=== PATIENT | female | born 1980 | race Native Hawaiian/Other Pacific Islander ===

== ENCOUNTER 2018-06-02 23:51 | Emergency (ER) | payer OTHER ==
[2018-06-03 00:12] LABS: BILIRUBIN,URINE NEGATIVE (NEGATIVE); GLUCOSE, URINE (UA) NEGATIVE (NEGATIVE); KETONES,URINE (UA) NEGATIVE (NEGATIVE); LEUKOCYTE ESTERASE, URINE SMALL (NEGATIVE); NITRITE,URINE NEGATIVE (NEGATIVE); OCCULT BLOOD,URINE NEGATIVE (NEGATIVE); PH,URINE 6.5 PH (5.0-7.5); PROTEIN,URINE NEGATIVE (NEGATIVE); UROBILINOGEN,URINE 0.2 (NORMAL) E.U./dL (NORMAL)
[2018-06-03 00:18] LABS: BASOPHILS # (AUTO) 0.1 10^3/uL (0.0-0.1); BASOPHILS % (AUTO) 0.8 %; EOSINOPHILS # (AUTO) 0.3 10^3/uL (0.0-0.7); EOSINOPHILS % (AUTO) 3.7 %; HGB - HEMOGLOBIN 15.1 g/dL (12.0-16.0); LYMPHOCYTES # (AUTO) 2.5 10^3/uL (1.5-3.5); LYMPHOCYTES % (AUTO) 27.8 %; MEAN CORPUSCULAR HEMOGLOBIN 30.5 pg (27.0-31.0); MEAN CORPUSCULAR HGB CONC 34.6 g/dL (32.0-36.0); MEAN CORPUSCULAR VOLUME 88.3 fL (81.0-99.0); MEAN PLATELET VOLUME 8.3 fL (7.9-10.8); MONOCYTES # (AUTO) 0.6 10^3/uL (0.0-1.0); MONOCYTES % (AUTO) 6.7 %; NEUTROPHILS # (AUTO) 5.5 10^3/uL (1.5-6.6); PLT - PLATELET COUNT 214 10^3/uL (130-450); RED BLOOD COUNT 4.95 10^6/uL (4.20-5.40); RED CELL DISTRIBUTION WIDTH 12.9 % (12.0-15.0)
[2018-06-03 00:27] LABS: BACTERIA,URINE Rare /HPF (None Seen); CLARITY,URINE CLEAR (CLEAR); HCG UR QUAL NEGATIVE; RBC,URINE 0-5 /HPF (0-5); SQUAMOUS EPITHELIAL CELL,UR MOD Squamous (<= Few)
--- NOTE | 2018-06-03 00:38 | ED Physician Documentation ---
PD HPI ABD PAIN - Stated complaint Stated Complaint: ABD PX/BACK PX - Chief complaint Chief Complaint: Abd Pain - History obtained from History obtained from: Patient - History of Present Illness Timing - onset: How many days ago (5 days ago) Timing - details: Abrupt onset Pain level now: 8 Quality: Pain Location: RUQ Radiation: Lower back Improved by: Other (no ameliorating factors) Worsened by: Other (no exacerbating factors) Associated symptoms: Nausea. No: Fever, Vomiting, Diarrhea, Constipation Recently seen: Clinic (evaluated at [facility] 5 days ago (see below)) - Additional information Additional information: Sudden onset RUQ abdominal pain 5 days ago, evaluated at [facility] at that time; patient says she had blood tests, xrays, and UA. She was started on Cipro for possible UTI, although xrays were s/o gallstones. Her pain resolved and she was pain-free until earlier tonight when her pain returned and was more severe Review of Systems Constitutional: denies: Fever, Chills, Sweats Cardiac: reports: Reviewed and negative Respiratory: reports: Reviewed and negative GI: reports: Abdominal Pain, Nausea. denies: Vomiting, Constipation, Diarrhea : denies: Dysuria, Frequency, Now EGA PD PAST MEDICAL HISTORY - Past Medical History Past Medical History: No Cardiovascular: Hypertension - Past Surgical History Past Surgical History: No - Present Medications Home Medications: Ambulatory Orders Medication Instructions Recorded Confirmed Ciprofloxacin [Cipro] 500 mg PO BID 06/02/18 06/02/18 Hydrocodone/Acetaminophen 1 - 2 each PO Q6H PRN #14 tablet 06/03/18 [Hydrocodon-Acetaminophen 5-325] Ondansetron Odt [Zofran] 4 mg TL Q6H PRN #10 tablet 06/03/18 - Allergies Allergies/Adverse Reactions: Allergies Allergy/AdvReac Type Severity Reaction Status Date / Time amoxicillin Allergy Intermediate Rash Verified 06/02/18 23:58 - Social History Does the pt smoke?: Yes Smoking Status: Current every day smoker Does the pt drink ETOH?: Yes Does the pt have substance abuse?: No - Immunizations Immunizations are current?: No - POLST Patient has POLST: No PD ED PE NORMAL - Vitals Vital signs reviewed: Yes - General General: Alert and oriented X 3, Well developed/nourished, Other (appears to be in mild/moderate painful distress) - Cardiac Cardiac: RRR, No murmur - Respiratory Respiratory: No respiratory distress, Clear bilaterally - Abdomen Abdomen: Soft, Non distended, Other (mild RUQ/epigastric tenderness to palpation without rebound or guarding) - Back Back: No CVA TTP - Derm Derm: Normal color, Warm and dry Results - Vitals Vitals: Vital Signs - 24 hr 06/02/18 06/03/18 06/03/18 23:54 02:46 05:11 Temperature 36.4 C L Heart Rate 84 62 68 Respiratory 18 16 16 Rate Blood Pressure 146/102 H 137/98 H 136/109 H O2 Saturation 100 99 100 Oxygen O2 Source Room air - Labs Labs: Laboratory Tests 06/03/18 06/03/18 06/03/18 00:01 00:08 00:08 WBC 9.0 RBC 4.95 Hgb 15.1 Hct 43.7 MCV 88.3 MCH 30.5 MCHC 34.6 RDW 12.9 Plt Count 214 MPV 8.3 Neut # (Auto) 5.5 Lymph # (Auto) 2.5 [place] # (Auto) 0.6 Eos # (Auto) 0.3 Baso # (Auto) 0.1 Absolute Nucleated RBC 0.00 Nucleated RBC % 0.0 Sodium 137 Potassium 3.6 Chloride 105 Carbon Dioxide 24 Anion Gap 8.0 BUN 17 Creatinine 0.8 Estimated GFR (MDRD) 81 L Glucose 126 H Calcium 8.7 Total Bilirubin 0.8 AST 19 ALT 21 Alkaline Phosphatase 42 Total Protein 7.3 Albumin 4.0 Globulin 3.3 Albumin/Globulin Ratio 1.2 Lipase 33 Urine Color YELLOW Urine Clarity CLEAR Urine pH 6.5 Ur Specific [place] 1.020 Urine Protein NEGATIVE Urine Glucose (UA) NEGATIVE Urine Ketones NEGATIVE Urine Occult Blood NEGATIVE Urine Nitrite NEGATIVE Urine Bilirubin NEGATIVE Urine Urobilinogen 0.2 (NORMAL) Ur Leukocyte Esterase SMALL H Urine RBC 0-5 Urine WBC 4-5 Ur Squamous Epith Cells MOD Squamous H Urine Bacteria Rare Ur Microscopic Review INDICATED Urine Culture Comments NOT INDICATED Urine HCG, Qual NEGATIVE - Rads (name of study) RUQ US Radiology: Prelim report reviewed, See rad report PD MEDICAL DECISION MAKING - ED course Complexity details: reviewed results, re-evaluated patient, considered differential, d/w patient ED course: On reevaluation, patient is resting comfortably. She reports resolution of her symptoms subsequent to IV fluids, toradol, and dilaudid. Advised of test results and need to return if worse, follow-up with general surgery Departure - Departure Disposition: 01 Home, Self Care Clinical Impression: Biliary colic Condition: Good Instructions: ED Gallstone W Biliary Colic Follow-Up: [facility] [Provider Group] Rhett Fountain MD [Provider Admit Priv/Credential] - Prescriptions: Hydrocodone/Acetaminophen [Hydrocodon-Acetaminophen 5-325] 1 - 2 each PO Q6H PRN #14 tablet PRN Reason: pain Ondansetron Odt [Zofran] 4 mg TL Q6H PRN #10 tablet PRN Reason: Nausea / Vomiting Discharge Date/Time: 06/03/18 05:12
[2018-06-03 00:50] LABS: ALBUMIN/GLOBULIN RATIO 1.2 (1.0-2.2); BILIRUBIN,TOTAL 0.8 mg/dL (0.2-1.0); CALCIUM 8.7 mg/dL (8.5-10.3); CREATININE 0.8 mg/dL (0.4-1.0); TOTAL PROTEIN 7.3 g/dL (6.7-8.2)
[2018-06-03] MEDS ORDERED: ONDANSETRON 4 MG/2 ML VIAL IVP STA (00:57)
[2018-06-03] MEDS ORDERED: KETOROLAC 60 MG/2 ML VIAL IVP STA (00:57)
[2018-06-03] MEDS ORDERED: HYDROmorphone 1 MG/ML CARPUJECT IVP STA (00:57)
--- NOTE | 2018-06-03 02:23 | Ultrasound Report ---
Reason: RUQ pain Procedure Date: 06/03/2018 Accession Number: [id number] / [id number] Procedure: US - Abdomen Limited CPT Code: FULL RESULT: EXAM: ABDOMEN ULTRASOUND LIMITED, RUQ EXAM DATE: 06/03/2018 02:02 AM. CLINICAL HISTORY: Right upper quadrant pain. COMPARISON: None. TECHNIQUE: Real-time scanning was performed with static images obtained. FINDINGS: Liver: Moderate to severe increased echogenicity. No suspicious focal lesion. Liver measures cm in length. Portal Vein: Patent with hepatopetal flow. Gallbladder: Multiple gallstones are noted within the gallbladder neck. No pathologic wall thickening or pericholecystic fluid. Sonographic Meza sign difficult to assess due to premedication. Biliary System: CBD measures 4.8 mm. No intrahepatic or extrahepatic ductal dilatation. Pancreas: Normal appearing head and body. Other portions are obscured by overlying structures. Right Kidney: Visualized portions of the right kidney are without significant abnormality. Right kidney measures 10.5 cm in length. Other: None. IMPRESSION: 1. Multiple gallstones without evidence of cholecystitis. No pathologic biliary dilation demonstrated. 2. Moderate to severe hepatic steatosis. RADIA
[2018-06-03] MEDS ORDERED: HYDROcod/ACET 5/325 Prepack 4 PO STA (05:03)
[2018-06-03 05:12] VITALS: BP 136/109
== END 2018-06-03 05:12 | disposition home or self-care (01) ==
LOC: ED 23:51
DX: I10 Essential (primary) hypertension (principal); F17.200 Nicotine dependence, unspecified, uncomplicated; K80.70 Calculus of gallbladder and bile duct without cholecystitis without obstruction
CPT/HCPCS: 36415; 76705; 80053; 81001; 81003; 81025; 83690; 85025; 87086; 96374; 99283; 99284

== ENCOUNTER 2018-07-07 01:28 | Emergency (ER) | payer OTHER ==
[2018-07-07] MEDS ORDERED: KETOROLAC 15 MG/ML VIAL IVP STA (01:46)
[2018-07-07] MEDS ORDERED: SODIUM CHLORIDE 0.9% 1,000 ML IV STA (01:46)
[2018-07-07] MEDS ORDERED: MORPHINE 10 MG/ML VIAL IVP STA (01:46)
--- NOTE | 2018-07-07 01:53 | ED Physician Documentation ---
PD HPI ABD PAIN - Stated complaint Stated Complaint: ABD PX/BK PX - Chief complaint Chief Complaint: Abd Pain - History obtained from History obtained from: Patient - History of Present Illness Timing - onset: How many hours ago (5), Last night Timing - duration: Hours (5) Timing - details: Abrupt onset Pain level max: 9 Pain level now: 9 Quality: Aching, Pain Location: RUQ, Epigastric Radiation: Other (non-radiating) Improved by: Other (nothing) Worsened by: Moving, Palpation Associated symptoms: Nausea. No: Fever, Vomiting, Hematemesis, Diarrhea, Constipation, Melena, Hematochezia, Dysuria Similar symptoms before: Diagnosis (biliary colic) Recently seen: Not recently seen - Additional information Additional information: awaiting surgery referral for biliary colic. Review of Systems Ten Systems: 10 systems reviewed and negative Constitutional: denies: Fever, Chills Throat: denies: Sore throat Cardiac: denies: Chest pain / pressure Respiratory: denies: Dyspnea, Cough, Wheezing GI: denies: Vomiting, Diarrhea, Hematemesis, Bloody / black stool : denies: Dysuria, Frequency, Hesitancy, Now EGA Skin: denies: Rash Musculoskeletal: denies: Neck pain, Back pain Neurologic: denies: Headache PD PAST MEDICAL HISTORY - Past Medical History Cardiovascular: Hypertension - Past Surgical History Past Surgical History: No - Present Medications Home Medications: Ambulatory Orders Medication Instructions Recorded Confirmed Hydrocodone/Acetaminophen 1 - 2 each PO Q6H PRN #14 tablet 06/03/18 07/07/18 [Hydrocodon-Acetaminophen 5-325] Ondansetron Odt [Zofran] 4 mg TL Q6H PRN #10 tablet 06/03/18 07/07/18 - Allergies Allergies/Adverse Reactions: Allergies Allergy/AdvReac Type Severity Reaction Status Date / Time amoxicillin Allergy Intermediate Rash Verified 07/07/18 01:35 - Social History Does the pt smoke?: Yes Smoking Status: Current every day smoker Does the pt drink ETOH?: Yes Does the pt have substance abuse?: No - Immunizations Immunizations are current?: No - POLST Patient has POLST: No PD ED PE NORMAL - Vitals Vital signs reviewed: Yes - General General: Alert and oriented X 3, No acute distress, Well developed/nourished - HEENT HEENT: PERRL, Moist mucous membranes - Neck Neck: Supple, no meningeal sign - Cardiac Cardiac: RRR, Strong equal pulses - Respiratory Respiratory: No respiratory distress, Clear bilaterally - Abdomen Abdomen: Soft, Non distended, Other (Tender to palpation right upper quadrant. Positive Meza sign) - Back Back: No spinal TTP - Derm Derm: Warm and dry - Extremities Extremities: No edema - Neuro Neuro: Alert and oriented X 3 - Psych Psych: Normal mood, Normal affect Results - Vitals Vitals: Vital Signs - 24 hr 07/07/18 07/07/18 07/07/18 01:31 02:41 03:32 Temperature 36.6 C 36.5 C Heart Rate 71 88 71 Respiratory 17 15 16 Rate Blood Pressure 142/100 H 131/91 H 128/87 H O2 Saturation 100 99 100 Oxygen O2 Source Room air - Labs Labs: Laboratory Tests 07/07/18 07/07/18 07/07/18 01:46 01:46 01:50 WBC 6.6 RBC 4.52 Hgb 13.8 Hct 40.6 MCV 89.7 MCH 30.5 MCHC 33.9 RDW 12.4 Plt Count 180 MPV 8.4 Neut # (Auto) 3.5 Lymph # (Auto) 2.3 [place] # (Auto) 0.5 Eos # (Auto) 0.3 Baso # (Auto) 0.1 Absolute Nucleated RBC 0.01 Nucleated RBC % 0.1 Sodium 136 Potassium 3.8 Chloride 103 Carbon Dioxide 27 Anion Gap 6.0 BUN 18 Creatinine 0.9 Estimated GFR (MDRD) 70 L Glucose 127 H Calcium 9.0 Total Bilirubin 0.6 AST 17 ALT 20 Alkaline Phosphatase 41 L Total Protein 6.7 Albumin 3.7 Globulin 3.0 Albumin/Globulin Ratio 1.2 Lipase 34 Urine Color YELLOW Urine Clarity HAZY Urine pH 6.0 Ur Specific [place] 1.025 Urine Protein NEGATIVE Urine Glucose (UA) NEGATIVE Urine Ketones NEGATIVE Urine Occult Blood SMALL H Urine Nitrite NEGATIVE Urine Bilirubin NEGATIVE Urine Urobilinogen 0.2 (NORMAL) Ur Leukocyte Esterase SMALL H Urine RBC 0-5 Urine WBC >25 H Ur Squamous Epith Cells MANY Squamous H Urine Bacteria Moderate H Ur Microscopic Review INDICATED Urine Culture Comments NOT INDICATED Urine HCG, Qual NEGATIVE - Rads (name of study) Right upper quadrant ultrasound Radiology: Prelim report reviewed, EMP read contemporaneously, See rad report (Cholelithiasis and mild gallbladder wall thickening, early cholecystitis is possible in the proper clinical setting. 2. Mildly fatty liver. ) PD MEDICAL DECISION MAKING - ED course Complexity details: reviewed old records, reviewed results, re-evaluated patient, considered differential, d/w patient ED course: 38-year-old female with biliary colic. She did have a stone lodged in the gallbladder neck, but upon arrival back to the emergency department from ultrasound. Her pain suddenly resolved. Likely that the stone was dislodged. I offered to consult surgery to see if they would remove her gallbladder in the morning, she declines this and would rather follow-up as an outpatient. She will contact the office directly. She will return for worsening pain, fevers, vomiting or other new or worsening symptoms. Patient is well-appearing, nontoxic. Abdomen is soft, nontender nondistended on serial exam. Patient counseled regarding signs and symptoms for which I believe and urgent re- evaluation would be necessary. Patient with good understanding of and agreement to plan and is comfortable going home at this time This document was made in part using voice recognition software. While efforts are made to proofread this document, sound alike and grammatical errors may occur. Departure - Departure Disposition: 01 Home, Self Care Clinical Impression: Biliary colic Condition: Good Instructions: ED Gallstone W Biliary Colic Follow-Up: Rhett Fountain MD [Provider Admit Priv/Credential] - Within 1 week Comments: Your pain has resolved tonight. Return if your pain worsens, you develop vomiting or fevers. It is important to follow-up with surgery to have your gallbladder removed. You should follow-up very low-fat diet as this may help to prevent future attacks. Discharge Date/Time: 07/07/18 03:33
[2018-07-07 01:55] LABS: BASOPHILS # (AUTO) 0.1 10^3/uL (0.0-0.1); BASOPHILS % (AUTO) 0.8 %; EOSINOPHILS # (AUTO) 0.3 10^3/uL (0.0-0.7); EOSINOPHILS % (AUTO) 4.4 %; HGB - HEMOGLOBIN 13.8 g/dL (12.0-16.0); LYMPHOCYTES # (AUTO) 2.3 10^3/uL (1.5-3.5); LYMPHOCYTES % (AUTO) 34.2 %; MEAN CORPUSCULAR HEMOGLOBIN 30.5 pg (27.0-31.0); MEAN CORPUSCULAR HGB CONC 33.9 g/dL (32.0-36.0); MEAN CORPUSCULAR VOLUME 89.7 fL (81.0-99.0); MEAN PLATELET VOLUME 8.4 fL (7.9-10.8); MONOCYTES # (AUTO) 0.5 10^3/uL (0.0-1.0); MONOCYTES % (AUTO) 7.2 %; NEUTROPHILS # (AUTO) 3.5 10^3/uL (1.5-6.6); NEUTROPHILS % (AUTO) 53.4 %; PLT - PLATELET COUNT 180 10^3/uL (130-450); RED BLOOD COUNT 4.52 10^6/uL (4.20-5.40); RED CELL DISTRIBUTION WIDTH 12.4 % (12.0-15.0); WHITE BLOOD COUNT 6.6 x10^3/uL (4.8-10.8)
[2018-07-07 02:04] LABS: BILIRUBIN,URINE NEGATIVE (NEGATIVE); GLUCOSE, URINE (UA) NEGATIVE (NEGATIVE); KETONES,URINE (UA) NEGATIVE (NEGATIVE); LEUKOCYTE ESTERASE, URINE SMALL (NEGATIVE); NITRITE,URINE NEGATIVE (NEGATIVE); OCCULT BLOOD,URINE SMALL (NEGATIVE); PROTEIN,URINE NEGATIVE (NEGATIVE); UROBILINOGEN,URINE 0.2 (NORMAL) E.U./dL (NORMAL)
[2018-07-07 02:16] LABS: BACTERIA,URINE Moderate /HPF (None Seen); CLARITY,URINE HAZY (CLEAR); HCG UR QUAL NEGATIVE; RBC,URINE 0-5 /HPF (0-5); SQUAMOUS EPITHELIAL CELL,UR MANY Squamous (<= Few)
[2018-07-07 02:23] LABS: ALBUMIN 3.7 g/dL (3.2-5.5); ALBUMIN/GLOBULIN RATIO 1.2 (1.0-2.2); BILIRUBIN,TOTAL 0.6 mg/dL (0.2-1.0); CREATININE 0.9 mg/dL (0.4-1.0); TOTAL PROTEIN 6.7 g/dL (6.7-8.2)
--- NOTE | 2018-07-07 03:07 | Ultrasound Report ---
Reason: RUQ pain Procedure Date: 07/07/2018 Accession Number: [id number] / [id number] Procedure: US - Abdomen Limited CPT Code: FULL RESULT: EXAM: ABDOMEN ULTRASOUND LIMITED, RUQ EXAM DATE: 07/07/2018 02:00 AM. CLINICAL HISTORY: Right upper quadrant pain. COMPARISON: ABDOMEN LIMITED 06/03/2018 1:17 AM. TECHNIQUE: Real-time scanning was performed with static images obtained. FINDINGS: Liver: Echotexture increased without suspicious abnormality seen. Main portal vein flow: Hepatopetal. Gallbladder: Multiple gallstones and sludge, including a large stone lodged in the gallbladder neck. Wall thickening at 3.3 mm. Telephone Service Representative reports patient medicated. No pericholecystic edema seen. Biliary System: CBD measures 4 mm. No intrahepatic or extrahepatic ductal dilatation. Other: Visualized portions of the pancreas and right kidney are unremarkable. IMPRESSION: 1. Cholelithiasis and mild gallbladder wall thickening, early cholecystitis is possible in the proper clinical setting. 2. Mildly fatty liver. RADIA
[2018-07-07 03:33] VITALS: BP 128/87
== END 2018-07-07 03:33 | disposition home or self-care (01) ==
LOC: ED 01:28
DX: K80.50 Calculus of bile duct without cholangitis or cholecystitis without obstruction (principal); F17.200 Nicotine dependence, unspecified, uncomplicated
CPT/HCPCS: 36415; 76705; 80053; 81001; 81003; 81025; 83690; 85025; 87086; 96361; 96374; 99283; 99284

== ENCOUNTER 2018-08-01 03:02 | Day surgery (SDC) | payer OTHER ==
[2018-08-01] MEDS ORDERED: PROMETHAZINE INJ 25 MG in SODIUM CHLORIDE 0.9% 50 ML IV STA (03:32)
[2018-08-01] MEDS ORDERED: SODIUM CHLORIDE 0.9% 1,000 ML IV ONE (03:32)
[2018-08-01] MEDS ORDERED: fentaNYL 100 MCG/2 ML VIAL IVP STA ×2 (03:32→05:17)
[2018-08-01 03:38] LABS: BASOPHILS # (AUTO) 0.1 10^3/uL (0.0-0.1); EOSINOPHILS # (AUTO) 0.3 10^3/uL (0.0-0.7); HGB - HEMOGLOBIN 14.6 g/dL (12.0-16.0); LYMPHOCYTES # (AUTO) 2.3 10^3/uL (1.5-3.5); LYMPHOCYTES % (AUTO) 34.1 %; MEAN CORPUSCULAR HEMOGLOBIN 30.5 pg (27.0-31.0); MEAN CORPUSCULAR HGB CONC 34.3 g/dL (32.0-36.0); MEAN CORPUSCULAR VOLUME 88.9 fL (81.0-99.0); MEAN PLATELET VOLUME 8.7 fL (7.9-10.8); MONOCYTES # (AUTO) 0.7 10^3/uL (0.0-1.0); MONOCYTES % (AUTO) 9.9 %; NEUTROPHILS # (AUTO) 3.3 10^3/uL (1.5-6.6); PLT - PLATELET COUNT 206 10^3/uL (130-450); RED BLOOD COUNT 4.79 10^6/uL (4.20-5.40); RED CELL DISTRIBUTION WIDTH 12.5 % (12.0-15.0); WHITE BLOOD COUNT 6.6 x10^3/uL (4.8-10.8)
[2018-08-01 04:01] LABS: ALBUMIN 4.2 g/dL (3.2-5.5); ALBUMIN/GLOBULIN RATIO 1.3 (1.0-2.2); ALKALINE PHOSPHATASE 37 IU/L (42-121); ALT ALANINE AMINOTRANSFERASE 20 IU/L (10-60); AST ASPARTATE AMINOTRANSFERASE 21 IU/L (10-42); BILIRUBIN,TOTAL 0.8 mg/dL (0.2-1.0); BUN - BLOOD UREA NITROGEN 19 mg/dL (6-20); CALCIUM 9.7 mg/dL (8.5-10.3); CARBON DIOXIDE - CO2 24 mmol/L (21-32); CHLORIDE 98 mmol/L (101-111); CREATININE 0.8 mg/dL (0.4-1.0); GFR - MDRD 81 (>89); GLUCOSE 112 mg/dL (70-100); HCG,QUALITATIVE BLOOD NEGATIVE; LIPASE 40 U/L (22-51); SODIUM 140 mmol/L (135-145); TOTAL PROTEIN 7.5 g/dL (6.7-8.2)
[2018-08-01 04:08] LABS: BILIRUBIN,URINE NEGATIVE (NEGATIVE); GLUCOSE, URINE (UA) NEGATIVE (NEGATIVE); KETONES,URINE (UA) NEGATIVE (NEGATIVE); LEUKOCYTE ESTERASE, URINE TRACE (NEGATIVE); NITRITE,URINE NEGATIVE (NEGATIVE); OCCULT BLOOD,URINE NEGATIVE (NEGATIVE); PROTEIN,URINE NEGATIVE (NEGATIVE); UROBILINOGEN,URINE 1 (NORMAL) E.U./dL (NORMAL)
[2018-08-01 04:09] LABS: CLARITY,URINE CLEAR (CLEAR)
[2018-08-01 04:17] LABS: BACTERIA,URINE Rare /HPF (None Seen); RBC,URINE 0-5 /HPF (0-5); SQUAMOUS EPITHELIAL CELL,UR MOD Squamous (<= Few)
[2018-08-01] MEDS ORDERED: IOVERSOL 320 100 ML VIAL IVP ONE ×2 (04:25→04:58)
--- NOTE | 2018-08-01 05:00 | ED Physician Documentation ---
PD HPI ABD PAIN - Stated complaint Stated Complaint: ABDOMINAL PAIN - Chief complaint Chief Complaint: Abd Pain - Additional information Additional information: 38-year-old female with a history of gallstones who was recently seen in the emergency department for similar symptoms returns with increasing right upper quadrant pain which started this morning around 2 AM. The pain radiates into the back. The patient reports nausea. No improvement with OxyContin that she had at home. No lower abdominal pain. No clear triggering factors. No other associated symptoms Review of Systems Constitutional: denies: Fever, Chills, Fatigue Eyes: denies: Discharge Ears: denies: Ear pain Nose: denies: Congestion Throat: denies: Sore throat Cardiac: denies: Chest pain / pressure Respiratory: denies: Cough GI: reports: Abdominal Pain, Nausea. denies: Diarrhea : denies: Dysuria Skin: denies: Rash Musculoskeletal: denies: Neck pain Neurologic: denies: Generalized weakness Immunocompromised: denies: Chemotherapy PD PAST MEDICAL HISTORY - Past Medical History Cardiovascular: Hypertension GI: Cholelithiasis - Past Surgical History Past Surgical History: No - Allergies Allergies/Adverse Reactions: Allergies Allergy/AdvReac Type Severity Reaction Status Date / Time amoxicillin Allergy Intermediate Rash Verified 08/01/18 03:08 - Social History Does the pt smoke?: Yes Smoking Status: Current every day smoker Does the pt drink ETOH?: Yes Does the pt have substance abuse?: No - Immunizations Immunizations are current?: No - POLST Patient has POLST: No PD ED PE NORMAL - General General: Alert and oriented X 3. No: No acute distress (The patient appears quite uncomfortable) - HEENT HEENT: Atraumatic, PERRL, EOMI, Ears normal - Neck Neck: Supple, no meningeal sign - Cardiac Cardiac: RRR, Strong equal pulses - Respiratory Respiratory: No respiratory distress, Clear bilaterally - Abdomen Abdomen: Soft, Non distended. No: Non tender (Tender palpation in the right upper quadrant, no rebound or peritoneal signs) - Derm Derm: Normal color - Extremities Extremities: No deformity, No edema - Neuro Neuro: Alert and oriented X 3, Normal speech - Psych Psych: Normal affect Results - Vitals Vitals: Vital Signs - 24 hr 08/01/18 08/01/18 08/01/18 03:06 08:11 10:59 Temperature 36.7 C 36.8 C 37 C Heart Rate 73 63 70 Respiratory 18 16 10 L Rate Blood Pressure 145/103 H 130/93 H 136/101 H O2 Saturation 100 97 100 08/01/18 08/01/18 08/01/18 11:05 11:10 11:15 Temperature 37.2 C Heart Rate 66 74 67 Respiratory 10 L 16 17 Rate Blood Pressure 144/108 H 148/111 H 143/98 H O2 Saturation 100 100 100 08/01/18 08/01/18 08/01/18 11:25 11:30 11:35 Temperature 36.5 C 36.8 C Heart Rate 66 54 L 60 Respiratory 12 11 L 10 L Rate Blood Pressure 119/114 H 134/99 H 134/99 H O2 Saturation 98 98 96 08/01/18 08/01/18 08/01/18 11:40 11:50 12:00 Temperature 37.3 C 37.9 C H Heart Rate 54 L 54 L 55 L Respiratory 10 L 14 14 Rate Blood Pressure 125/87 H 126/88 H 133/80 H O2 Saturation 95 100 99 08/01/18 08/01/18 08/01/18 12:10 12:25 12:43 Temperature 38 C H 38 C H 38.2 C H Heart Rate 57 L 54 L 73 Respiratory 12 10 L 10 L Rate Blood Pressure 131/92 H 130/87 H 138/92 H O2 Saturation 100 95 97 08/01/18 12:52 Temperature 38.0 C H Heart Rate 77 Respiratory 12 Rate Blood Pressure 129/92 H O2 Saturation 97 Oxygen O2 Source Room air - Labs Labs: Laboratory Tests 08/01/18 08/01/18 08/01/18 03:20 03:20 04:05 WBC 6.6 RBC 4.79 Hgb 14.6 Hct 42.6 MCV 88.9 MCH 30.5 MCHC 34.3 RDW 12.5 Plt Count 206 MPV 8.7 Neut # (Auto) 3.3 Lymph # (Auto) 2.3 [place] # (Auto) 0.7 Eos # (Auto) 0.3 Baso # (Auto) 0.1 Absolute Nucleated RBC 0.00 Nucleated RBC % 0.0 Sodium 140 Potassium 3.6 Chloride 98 L Carbon Dioxide 24 Anion Gap 18.0 H BUN 19 Creatinine 0.8 Estimated GFR (MDRD) 81 L Glucose 112 H Calcium 9.7 Total Bilirubin 0.8 AST 21 ALT 20 Alkaline Phosphatase 37 L Total Protein 7.5 Albumin 4.2 Globulin 3.3 Albumin/Globulin Ratio 1.3 Lipase 40 Serum HCG, Qual NEGATIVE Urine Color YELLOW Urine Clarity CLEAR Urine pH 7.0 Ur Specific [place] 1.020 Urine Protein NEGATIVE Urine Glucose (UA) NEGATIVE Urine Ketones NEGATIVE Urine Occult Blood NEGATIVE Urine Nitrite NEGATIVE Urine Bilirubin NEGATIVE Urine Urobilinogen 1 (NORMAL) Ur Leukocyte Esterase TRACE H Urine RBC 0-5 Urine WBC 4-5 Ur Squamous Epith Cells MOD Squamous H Urine Bacteria Rare Ur Microscopic Review INDICATED Urine Culture Comments NOT INDICATED - Rads (name of study) CT abd/pelvis Radiology: Final report received (IMPRESSION: Calcified gallstone in the neck of the gallbladder. No evidence of biliary obstruction. No nephrolithiasis or hydronephrosis. ), See rad report PD MEDICAL DECISION MAKING - ED course ED course: The case was discussed with the on-call general surgeon who will come and evaluate the patient in the emergency department for definitive operative management Departure - Departure Disposition: ED Transfer to [facility] Clinical Impression: Acute cholecystitis Discharge Date/Time: 08/01/18 09:30
--- NOTE | 2018-08-01 05:11 | CT Report ---
Reason: epigastric pain Procedure Date: 08/01/2018 Accession Number: [id number] / [id number] Procedure: CT - Abdomen/Pelvis W CPT Code: FULL RESULT: EXAM: CT ABDOMEN AND PELVIS EXAM DATE: 08/01/2018 04:57 AM. CLINICAL HISTORY: Epigastric pain. COMPARISONS: ABDOMEN LIMITED 07/07/2018 2:08 AM. TECHNIQUE: Routine helical CT imaging was performed through the abdomen and pelvis. IV contrast: OPTIRAY 320 90mL. Enteric contrast: No. Reconstructions: Coronal and sagittal. In accordance with CT protocol optimization, one or more of the following dose reduction techniques were utilized for this exam: automated exposure control, adjustment of mA and/or KV based on patient size, or use of iterative reconstructive technique. FINDINGS: Lung Bases: Unremarkable. Liver: Normal. No masses. Gallbladder/Bile Ducts: Calcified gallstone in the neck of the gallbladder. No biliary dilatation. Spleen: Normal. Pancreas: Normal. Adrenal Glands: Normal. Kidneys: Normal. No masses or hydronephrosis. Peritoneal Cavity/Bowel: Normal. No free fluid, free air or adenopathy. No masses or acute inflammatory process. The appendix is well visualized and normal. Pelvic Organs: Small amount of free fluid in the pelvis, likely physiologic in a patient of this age. No adenopathy. The pelvic organs appear unremarkable. Vasculature: No aneurysms or other significant abnormality. Bones: No significant abnormality. Other: None. IMPRESSION: Calcified gallstone in the neck of the gallbladder. No evidence of biliary obstruction. No nephrolithiasis or hydronephrosis. RADIA
--- NOTE | 2018-08-01 08:05 | ANESTHESIA ---
Pre-Anesthesia VS, & Labs - Diagnosis Acute cholelithiasis - Procedure laparoscopic cholecystectomy Vital Signs: Temp Pulse Resp BP Pulse Ox 36.7 C 73 18 145/103 H 100 08/01/18 03:06 08/01/18 03:06 08/01/18 03:06 08/01/18 03:06 08/01/18 03:06 Height 5 ft 6 in Weight (kg) 92.986 kg Body Mass Index 33.0 - NPO >8 hours - Is Patient ?: No - Lab Results Current Lab Results: Laboratory Tests 08/01/18 03:20: Sodium 140, Potassium 3.6, Chloride 98 L, Carbon Dioxide 24, Anion Gap 18.0 H, BUN 19, Creatinine 0.8, Estimated GFR (MDRD) 81 L, Glucose 112 H, Calcium 9.7, Total Bilirubin 0.8, AST 21, ALT 20, Alkaline Phosphatase 37 L, Total Protein 7.5, Albumin 4.2, Globulin 3.3, Albumin/Globulin Ratio 1.3, Lipase 40, Serum HCG, Qual NEGATIVE 08/01/18 03:20: WBC 6.6, RBC 4.79, Hgb 14.6, Hct 42.6, MCV 88.9, MCH 30.5, MCHC 34.3, RDW 12.5, Plt Count 206, MPV 8.7, Neut # (Auto) 3.3, Lymph # (Auto) 2.3, [place] # (Auto) 0.7, Eos # (Auto) 0.3, Baso # (Auto) 0.1, Absolute Nucleated RBC 0.00, Nucleated RBC % 0.0 Lab results reviewed: Yes Fish Bones: 08/01/18 03:20 08/01/18 03:20 Home Medications and Allergies Allergies/Adverse Reactions: Allergies Allergy/AdvReac Type Severity Reaction Status Date / Time amoxicillin Allergy Intermediate Rash Verified 08/01/18 03:08 Anes History & Medical History - Anesthetic History Anesthesia Complications: reports: No previous complications Family history of Anesthesia Complications: Denies Family history of Malignant Hyperthermia: Denies - Medical History Cardiovascular: reports: Hypertension Gastrointestinal: reports: Cholelithiasis Smoking Status: Current every day smoker Exam General: Alert, Oriented x3, Cooperative Dental: WNL Mouth Openin Fingerbreadth Neck Mobility: Normal Mallampati classification: II Thyromental Distance: 4-6 cm Respiratory: Lungs clear, Normal breath sounds Cardiovascular: Regular rate Neurological: Normal speech Mental/Cognitive Status: Alert/Oriented X3 Cognitive Status: Within normal limits Plan Anesthesia Type: General Consent for Procedure(s) Verified and Reviewed: Yes Code Status: Attempt Resuscitation ASA classification: 2-Mild systemic disease Is this case an emergency?: No
[2018-08-01] MEDS ORDERED: cefOXitin 2 GM in SODIUM CHLORIDE 0.9% MINIBAG 100 ML IV STA (08:14)
[2018-08-01] MEDS ORDERED: BUPIVACAINE 0.5% PF 30 ML VIAL ONE (09:02)
[2018-08-01] MEDS ORDERED: LACTATED RINGERS 1,000 ML IV ONE ×2 (09:34→10:30)
[2018-08-01] MEDS ORDERED: BUPIVACAINE 0.5% PF 30 ML VIAL INFIL ONE ×2 (10:06)
--- NOTE | 2018-08-01 10:52 | IMMEDIATE POSTOPERATIVE NOTE ---
Immediate Postoperative Note - Procedure Note Procedure Date: 08/01/18 Pre-Op Diagnosis: cholecystitis Procedure: lap carine Post-Op Diagnosis: same Primary Surgeon: bebo Anesthesia Type: General ET tube Complications: No complications Estimated Blood Loss (in cc): 15 Specimens and Cultures: gallbladder Plan of Care: discharge
--- NOTE | 2018-08-01 11:12 | OPERATIVE REPORT ---
DATE OF SERVICE: 08/01/2018 Physician: Jese Lion MD PREOPERATIVE DIAGNOSIS: Biliary colic. POSTOPERATIVE DIAGNOSIS: Biliary colic. PROCEDURE PERFORMED: Laparoscopic cholecystectomy. INDICATIONS FOR PROCEDURE: The patient is a 38-year-old woman has had multiple ER visits, most recently earlier this morning, for biliary type pain. She has no sign of infection; however, the pain is prompting all these visits and limiting her life. She is requesting to have her gallbladder removed. On ultrasound, her common bile duct is normal size, and her LFTs are normal. PROCEDURE IN DETAIL: Risks and benefits were explained to the patient. She agreed to the procedure. She was taken to the operating room, placed under general anesthesia and intubated. The abdomen was prepped and draped. A timeout was performed, and everyone in the room agreed to the procedure. We began by making a 12 mm supraumbilical incision. We carried this down into the peritoneal cavity insert a Dori trocar and secured in place. We then insufflated the abdomen to 15 mmHg and inserted three more 5 mm trocars under vision of the camera, one below the xiphoid process, and two below the right costal margin. The gallbladder was identified and found to be distended, but not inflamed. It was retracted towards the head, and the fundus was dissected. The cystic duct and artery were clearly defined, and a critical view was obtained. These structures were then double clipped and ligated, and the gallbladder was removed off the liver bed using monopolar electricity. It was not perforated. It was then placed in an EndoCatch bag, but due to its distention, would not fit through the incision. A small incision was made in the gallbladder while it was in the bag and a large amount of bile was suctioned out of the gallbladder. However, there was still one very large stone obstructing its extraction and the incision in the fascia and the skin had to be enlarged to accommodate it. It was sent to pathology. The liver bed was then inspected. Hemostasis was achieved. The right upper quadrant was lavaged clean. The ports were then removed under vision of the camera. The fascia of the umbilical port site was closed using a 0 Vicryl stitch, and the skin over all four incisions was closed using 4-0 Monocryl and Dermabond. 20 mL of Marcaine was infused in the incisions prior to closure. This terminated the procedure. The patient tolerated it well. She was extubated in the operating room, and taken to the recovery room in stable condition. Instrument and lap counts were correct. ESTIMATED BLOOD LOSS: 15 mL COMPLICATIONS: None. SPECIMENS: Gallbladder. PLAN: The plan is for her to go home later today. TD: 08/01/2018 11:03 JAVID
[2018-08-01] MEDS ORDERED: ACETAMINOPHEN 1,000 MG/100 ML 100 ML IV ONE (11:25)
[2018-08-01] MEDS ORDERED: fentaNYL 100 MCG/2 ML VIAL ONE (11:35)
[2018-08-01] MEDS ORDERED: HYDROmorphone 1 MG/ML CARPUJECT ONE (11:36)
[2018-08-01 12:54] VITALS: BP 129/92
[2018-08-02] MEDS ORDERED: ONDANSETRON 4 MG/2 ML VIAL IVP ONE (09:00)
[2018-08-02] MEDS ORDERED: fentaNYL 250 MCG/5 ML VIAL IVP ONE (09:00)
[2018-08-02] MEDS ORDERED: DEXAMETHASONE 4 MG/ML VIAL IVP ONE (09:00)
[2018-08-02] MEDS ORDERED: ROCURONIUM 50 MG/5 ML VIAL IVP ONE (09:00)
[2018-08-02] MEDS ORDERED: PROPOFOL 200 MG/20 ML VIAL IVP ONE (09:00)
[2018-08-02] MEDS ORDERED: KETOROLAC 30 MG/ML VIAL IVP ONE (09:00)
[2018-08-02] MEDS ORDERED: GLYCOPYRROLATE 1 MG/5 ML VIAL IVP ONE (09:00)
[2018-08-02] MEDS ORDERED: METOPROLOL 5 MG/5 ML VIAL IVP ONE (09:00)
[2018-08-02] MEDS ORDERED: NEOSTIGMINE 1 MG/1 ML 10 ML MDV IVP ONE (09:00)
[2018-08-02] MEDS ORDERED: LIDOCAINE 2% 50 ML MDV IV ONE (09:00)
[2018-08-02] MEDS ORDERED: MIDAZOLAM 2 MG/2 ML VIAL IVP ONE (09:00)
== END 2018-08-01 07:01 | disposition home or self-care (01) ==
LOC: ED 03:02 → SDS 07:00
PROVIDERS: ATTEND Surgery
PROC: 0FT44ZZ Resection of Gallbladder, Percutaneous Endoscopic Approach (ICD-10-PCS; principal; 2018-08-01 08:45)
DX: K80.12 Calculus of gallbladder with acute and chronic cholecystitis without obstruction (principal); I10 Essential (primary) hypertension; F17.210 Nicotine dependence, cigarettes, uncomplicated
CPT/HCPCS: 36415; 47562; 74177; 80053; 81001; 83690; 84703; 85025; 96361; 96365; 96375; 99283; 99284; J0131; J1170; J7040; J7120; Q9967; 81003; 87086